=== PATIENT | female | born 1950 | race Caucasian/White ===

== ENCOUNTER 2024-11-16 15:46 | Inpatient (IN) ==
[2024-11-16] MEDS: MoRPHine SULFATE 4 MG/ML 1 ML CARP\\VIAL IV PRN ×2 (16:10→19:01)
--- NOTE | 2024-11-16 16:17 | Emergency Department Note ---
Impression & Plan Acute pain of right hip, Fall, Subcapital fracture of right hip ED Provider Note ED Provider Note NAME: ZACHARY GUTIERREZ AGE:74 SEX: Female : 1950 ARRIVES VIA: EMS INFORMANT: Patient ED PROVIDER(s): Maeve Simon DO CHIEF COMPLAINT: Fall, right hip pain HPI: This is a 74-year-old female who presents via EMS after an accidental slip and fall on ice today onto the right hip. Patient states she was unable to get back up due to pain at the right hip. She denies head injury or loss of consciousness. She denies any use of antiplatelet or anticoagulation medication. She denies any other concern for injury. She denies any paresthesias. She denies headache, dizziness, nausea or vomiting, chest pain, shortness of breath, abdominal pain, neck or back pain. PAST MEDICAL HISTORY:See Below PAST SURGICAL HISTORY:See Below FAMILY HISTORY:See Below SOCIAL HISTORY:See Below HOME MEDICATIONS:See Below ALLERGIES:See Below VITALS:See Below PHYSICAL EXAMINATION: GENERAL: alert, uncomfortable appearing, well nourished, no distress, non-toxic EYE EXAM: normal conjunctiva, PERRL and EOM's grossly intact OROPHARYNX: no exudate, no erythema, lips, buccal mucosa, and tongue normal and mucous membranes are moist NECK: supple, no nuchal rigidity, no adenopathy, non-tender LUNGS: Clear to auscultation. Normal chest wall mechanics, no w/r/r HEART: no murmurs, S1 normal and S2 normal ABDOMEN: abdomen soft, non-tender, normo-active bowel sounds, no masses, no rebound or guarding. BACK: Back is symmetrical on inspection and there is no deformity, no midline tenderness, no CVA tenderness. SKIN: no rashes, petechiae, orbruising UPPER EXTREMITIES: upper extremities are grossly normal. FROM, nml pulses b/l. LOWER EXTREMITIES: No pitting edema. FROM left lower extremity, nml pulses b/l. Pain with palpation of the right lateral hip, decreased range of motion at the right hip secondary to pain. No obvious joint effusion. No other evidence of trauma distal to the right lower extremity. Sensation intact bilaterally. NEURO EXAM: Normal sensorium, cranial nerves II-XII grossly intact, normal speech, no facial droop,nogross weakness of arms, no gross weakness of legs. Gross sensation intact. No ataxia. Vital Signs: reviewed and remarkable Differential Diagnosis: Fracture, subluxation, dislocation, contusion, ligamentous injury, neurovascular, compartment syndrome, rhabdomyolysis, as well as other pathologies. MEDICAL DECISION MAKING: This is a 74-year-old female who presents emergency department due to concern for slip and fall on ice with accompanying right hip pain. Labs drawn and sent, IV established, EKG and x-rays performed at bedside interpreted by me and patient monitored on telemetry. Patient given IV morphine here for pain with some improvement. Patient's labs are reassuring. Patient with subcapital hip fracture noted on x-ray. She was neurovascularly intact. Case discussed with orthopedics and with hospitalist team for additional evaluation and management. Patient and family updated on results at bedside and need for further management. Patient remained hemodynamically stable throughout. At this time I have a low suspicion for additional occult traumatic injury. Patient had no other concerns or complaints and no evolving symptoms while present the emergency department. Consultation(s): 1647: Discussed with Dr. Keenan via [facility] text. 1703: Discussed with Dr. Stoner, [facility] hospitalist team, for additional evaluation and management. ER Treatment Provided: See below Diagnostics Interpreted By Me: -ECG: Normal sinus at 87 with first-degree AV block, normal axis, normal intervals, no acute ST/T wave changes -Cardiac Monitoring: An order was placed for continuous cardiac monitoring. The monitor shows a rate of 98 with normal sinus rhythm. -Laboratory studies: As stated above and show below. 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 Beliefs That Will Affect Care: None Current Living Situation: Alone Feels Safe at Home: Yes Safety Concerns: Feels Safe At This Time Assistive Devices: None Allergies Allergies Allergy/AdvReac Type Severity Reaction Status Date / Time No Known Allergies Allergy Unverified 11/16/24 17:44 Home Meds Home Medications Medication Instructions Recorded Confirmed aspirin 81 mg tablet 81 mg PO DAILY 11/16/24 11/16/24 Results & Data (ED) Vital Signs Vital Signs - 24 hr 11/16/24 15:45 11/16/24 15:55 11/16/24 16:00 Temperature 36.8 C 36.8 C Temperature Source Oral Pulse Rate 102 H 101 H Pulse Rate [Apical] 86 Pulse Rhythm Regular Pulse Rhythm [Apical] Pulse Strength Normal Pulse Strength [Apical] Respiratory Rate 20 20 20 Respiratory Effort / Characteristics Non-Labored Spontaneous Non-Labored Spontaneous Respiratory Depth Normal Normal Respiratory Pattern Regular Regular Blood Pressure 172/98 H 172/101 H Blood Pressure [Left Arm] Blood Pressure Mean 124 Blood Pressure Mean [Left Arm] Blood Pressure Position [Left Arm] Pulse Oximetry 100 100 100 Oxygen Delivery Method Room Air Room Air Room Air Oxygen Flow Rate 0 Sepsis Recent Fever Within 48 Hours No Sepsis New/Unexplained Change in Mental Status N/A Sepsis Action Taken by Nursing No Action Required 11/16/24 16:18 11/16/24 16:42 11/16/24 16:49 Temperature Temperature Source Pulse Rate 88 Pulse Rate [Apical] 82 83 Pulse Rhythm Pulse Rhythm [Apical] Regular Regular Pulse Strength Pulse Strength [Apical] Normal Normal Respiratory Rate 21 Respiratory Effort / Characteristics Non-Labored Spontaneous Respiratory Depth Normal Respiratory Pattern Regular Blood Pressure Blood Pressure [Left Arm] 182/101 H Blood Pressure Mean Blood Pressure Mean [Left Arm] 128 Blood Pressure Position [Left Arm] Sitting Pulse Oximetry 100 Oxygen Delivery Method Room Air Oxygen Flow Rate Sepsis Recent Fever Within 48 Hours Sepsis New/Unexplained Change in Mental Status Sepsis Action Taken by Nursing 11/16/24 16:50 Temperature Temperature Source Pulse Rate Pulse Rate [Apical] Pulse Rhythm Pulse Rhythm [Apical] Pulse Strength Pulse Strength [Apical] Respiratory Rate Respiratory Effort / Characteristics Respiratory Depth Respiratory Pattern Blood Pressure Blood Pressure [Left Arm] Blood Pressure Mean Blood Pressure Mean [Left Arm] Blood Pressure Position [Left Arm] Pulse Oximetry 98 Oxygen Delivery Method Room Air Oxygen Flow Rate Sepsis Recent Fever Within 48 Hours Sepsis New/Unexplained Change in Mental Status Sepsis Action Taken by Nursing Laboratory Data 11/17/24 07:43 11/17/24 07:43 Lab Results 11/16/24 11/16/24 Range/Units 16:02 16:13 WBC 8.05 (4.8-10.8) K/ul RBC 5.11 (4.20-5.40) M/uL Hgb 14.9 (12.0-16.0) g/dl Hct 43.9 (37.0-47.0) % MCV 85.9 (80.0-100.0) fL MCH 29.2 (25.0-34.0) pg MCHC 33.9 (32.0-36.0) g/dL RDW Std Deviation 39.5 (36.4-46.3) fL RDW Coeff of Billie 12.6 (11.5-14.5) % Plt Count 189 (130-400) K/uL MPV 11.8 (9.4-12.4) fL Immature Gran % (Auto) 0.5 % Neut % (Auto) 69.9 % Lymph % (Auto) 22.7 % [place] % (Auto) 5.1 % Eos % (Auto) 0.9 % Baso % (Auto) 0.9 % Neut # (Auto) 5.63 (1.40-6.50) K/uL Lymph # (Auto) 1.83 (1.20-3.40) K/uL [place] # (Auto) 0.41 (0.11-0.59) K/uL Eos # (Auto) 0.07 (0.00-0.50) K/uL Baso # (Auto) 0.07 (0.00-0.20) K/uL Immature Gran # (Auto) 0.04 (0.01-0.20) K/uL PT Cancelled INR Cancelled APTT Cancelled PTT Ratio Cancelled Sodium 139 (136-145) mmol/L Potassium 3.8 (3.5-5.1) mmol/L Chloride 108 H (98-107) mmol/L Carbon Dioxide 20 L (21-32) mmol/L Anion Gap 11 (3-11) BUN 22 (6-23) mg/dl Creatinine 0.84 (0.6-1.2) mg/dl Est Cr Clr Drug Dosing 59.9 ml/min eGFR 71.97 BUN/Creatinine Ratio 26.2 H (10-20) Glucose 120 H (70-99(Fasting)) mg/dl Calcium 9.4 (8.6-10.3) mg/dl Total Bilirubin 0.5 (0.2-1.0) mg/dl AST 18 (13-39) U/L ALT 14 (7-52) U/L Alkaline Phosphatase 81 (34-104) U/L Total Protein 7.6 (6.0-8.3) gm/dl Albumin 4.6 (3.4-5.0) gm/dl Globulin 3.0 (2.5-4.0) gm/dl Albumin/Globulin Ratio 1.5 (0.9-2) Blood Type A Positive Antibody Screen NEGATIVE Administered Medications Aspirin (Aspirin 81 Mg Ectab) 81 mg PO BID KEI Stop: 12/17/24 20:59 Last Admin: 11/17/24 19:50 Dose: Not Given Documented By: K[facility] Hydralazine HCl (Hydralazine Hcl 20 Mg/Ml Vial) 10 mg IV Q6H PRN PRN Reason: Hypertension SBP>180orDBP>100 Stop: 12/16/24 18:35 Last Admin: 11/16/24 20:18 Dose: 10 mg Documented By: [facility] Cefazolin Sodium (Ancef 2000mg) 2,000 mg in 15 mls @ 3.75 mls/min IV PREOP KEI; Protocol Stop: 11/18/24 05:59 Last Admin: 11/17/24 13:03 Dose: 3.75 mls/min Documented By: [id number] Tranexamic Acid (Tranexamic Acid / 0.7% Nacl) 1,000 mg in 100 mls @ 7.87 mls/hr IV .[id number] ONE Stop: 11/18/24 01:52 Last Admin: 11/17/24 17:31 Dose: Not Given Documented By: [facility] Cefazolin Sodium (Ancef 1000mg) 1,000 mg in 7.5 mls @ 2.5 mls/min IV Q8H KEI; Protocol Stop: 11/18/24 05:02 Last Admin: 11/17/24 19:48 Dose: 2.5 mls/min Documented By: KMG Morphine Sulfate (Morphine Sulfate 4 Mg/Ml 1 Ml Carp\Vial) 3 mg IV Q4H PRN PRN Reason: Mod to Sev Pain (4-10) & Pre PT Stop: 11/30/24 18:35 Last Admin: 11/17/24 00:49 Dose: 3 mg Documented By: Admin: 11/16/24 19:01 Dose: 3 mg Documented By: BONITA Oxycodone/Acetaminophen (Oxycodone/Acetaminophen 5mg/325mg Tab) 1 tab PO Q4H PRN PRN Reason: Mild-Mod Pain (Scale 1-6) Stop: 11/30/24 18:35 Last Admin: 11/16/24 20:51 Dose: 1 tab Documented By: SARA Quetiapine Fumarate (Quetiapine Fumarate 25 Mg Tablet) 25 mg PO ONCE PRN PRN Reason: Agitation Stop: 12/17/24 18:47 Last Admin: 11/17/24 19:48 Dose: 25 mg Documented By: CLAUDIA Discontinued Medications Aspirin (Aspirin 81 Mg Ectab) 81 mg PO DAILY [facility] Stop: 12/17/24 08:59 Last Admin: 11/17/24 07:54 Dose: 81 mg Documented By: JABIER Lactated Ringer's (Lr) 1,000 mls @ 50 mls/hr IV .Q20H ONE Stop: 11/17/24 14:35 Last Infusion: 11/17/24 15:51 Dose: Infused Documented By: Admin: 11/16/24 18:50 Dose: 50 mls/hr Documented By: BONITA Tranexamic Acid 790 mg/ Sodium (Chloride) 57.9 mls @ 231.6 mls/hr IV PREOP ONE Stop: 11/17/24 12:58 Last Admin: 11/17/24 15:52 Dose: Not Given Documented By: JABIER Tranexamic Acid (Tranexamic Acid / 0.7% Nacl) 1,000 mg in 100 mls @ 600 mls/hr IV ONE ONE Stop: 11/17/24 13:06 Last Admin: 11/17/24 15:52 Dose: Not Given Documented By: JABIER Ropivacaine 246 mg/ Ketorolac Tromethamine 30 mg/Epinephrine HCl 0.5 mg/ Sodium Chloride 100.7 mls @ 0 mls/hr INFIL TODAY@0600 [facility]; Protocol Stop: 11/17/24 06:01 Last Admin: 11/17/24 14:21 Dose: 999 mls/hr Documented By: ROLANDO Tranexamic Acid (Tranexamic Acid / 0.7% Nacl) 1,000 mg in 100 mls @ 600 mls/hr IV PREOP ONE Stop: 11/17/24 13:19 Last Infusion: 11/17/24 15:51 Dose: Infused Documented By: Admin: 11/17/24 14:20 Dose: 600 mls/hr Documented By: [id number] Morphine Sulfate (Morphine Sulfate 4 Mg/Ml 1 Ml Carp\Vial) 4 mg IV Q1H PRN PRN Reason: Severe Pain (Rating 7,8,9,10) Stop: 11/30/24 15:53 Last Admin: 11/16/24 17:50 Dose: 4 mg Documented By: Admin: 11/16/24 16:10 Dose: 4 mg Documented By: KELLEY Tranexamic Acid (Tranexamic Acid / 0.7% Nacl 1000mg/100ml Bag) Confirm Administered Dose 2,000 mg IV .STK-MED ONE Stop: 11/17/24 12:59 Last Admin: 11/17/24 17:31 Dose: Not Given Documented By: [facility] Discharge Plan Visit Data Chief Complaint: Trauma Stated Complaint: TRAUMA ALERT, FALL, HIP FRACTURE ED Provider: Maeve Simon Discharge Problem: Acute pain of right hip, Fall, Subcapital fracture of right hip Patient Disposition: Admitted As Inpatient Discharge Instructions Interventions: ED Discharge Assessment Last Done: 11/16/24 18:12
[2024-11-16 16:29] LABS: Basophils # (auto) 0.07 K/uL (0.00-0.20); Basophils % (auto) 0.9 %; Eosinophils # (auto) 0.07 K/uL (0.00-0.50); Eosinophils % (auto) 0.9 %; Hematocrit (blood only) 43.9 % (37.0-47.0); Hemoglobin 14.9 g/dl (12.0-16.0); Immature Granulocytes # (auto) 0.04 K/uL (0.01-0.20); Immature Granulocytes % (auto) 0.5 %; Lymphocytes # (auto) 1.83 K/uL (1.20-3.40); Lymphocytes % (auto) 22.7 %; Mean Corpuscular Hemoglobin 29.2 pg (25.0-34.0); Mean Corpuscular Hgb Conc 33.9 g/dL (32.0-36.0); Mean Corpuscular Volume 85.9 fL (80.0-100.0); Mean Platelet Volume 11.8 fL (9.4-12.4); Monocytes # (auto) 0.41 K/uL (0.11-0.59); Monocytes % (auto) 5.1 %; Neutrophils # (auto) 5.63 K/uL (1.40-6.50); Neutrophils % (auto) 69.9 %; Platelet Count 189 K/uL (130-400); RDW Coefficient of Variation 12.6 % (11.5-14.5); RDW Standard Deviation 39.5 fL (36.4-46.3); Red Blood Count 5.11 M/uL (4.20-5.40); White Blood Count 8.05 K/ul (4.8-10.8)
[2024-11-16 16:32] LABS: Albumin Globulin Ratio 1.5 (0.9-2); Albumin Level 4.6 gm/dl (3.4-5.0); BUN Creatinine Ratio 26.2 (10-20); Bilirubin,Total 0.5 mg/dl (0.2-1.0); Calcium 9.4 mg/dl (8.6-10.3); Creatinine Clr Calc Pharmacy 59.9 ml/min; Potassium 3.8 mmol/L (3.5-5.1); Total Protein 7.6 gm/dl (6.0-8.3)
--- NOTE | 2024-11-16 17:27 | XRay Report ---
EXAM: XR hip RT min 2V CLINICAL HISTORY: Trauma TECHNIQUE: An X-ray image of the right hip joint was obtained in anteroposterior (AP) projection. COMPARISON: No prior studies are available for comparison. FINDINGS: Displaced sucapital fracture neck of the femur. Hip Joints: Hip joints are normal with preserved joint spaces. No evidence of hip dislocation, subluxation, or significant degenerative changes. No osteophytes, joint space narrowing, or sclerosis were noted. Acetabular structures appear normal and intact. No signs of acetabular fracture or dysplasia. Sacroiliac joints appear normal and unremarkable. No evidence of sacroiliitis or significant degenerative changes. Symphysis Pubis: The symphysis pubis is normal and intact. No evidence of separation or widening. Soft Tissues: Calcified density in the pelvis, may represent degenerated fibroid. Additional Findings: No other significant abnormalities were noted. IMPRESSION: Displaced sucapital fracture neck of the femur. DISCLAIMER:A subtle bone abnormality or fracture may not be readily apparent on x-rays, thus clinical correlation and further imaging including follow up CT, MRI, or follow up X-rays are advised as needed. Electronically signed by Addi Prakash 11-16-2024 5:27 PM
--- NOTE | 2024-11-16 17:37 | XRay Report ---
EXAM: XR chest 1V portable CLINICAL HISTORY: trauma TECHNIQUE: X-ray images of the chest were obtained in AP projections. COMPARISON: No prior studies available for comparison. FINDINGS: Pulmonary Parenchyma: Diffuse reticular thickening suggestive of COPD changes. No evidence of pleural effusion or pleural thickening. Heart and Mediastinum: Heart size and shape are normal. No mediastinal widening or masses. No hilar or mediastinal lymphadenopathy. Bony Thorax: Bilateral shoulder joints degenerative changes. Soft Tissues: Soft tissues overlying the chest wall are unremarkable. Cardiac monitoring electrodes. IMPRESSION: Diffuse reticular thickening suggestive of COPD changes. No acute cardiopulmonary disease process noted. Electronically signed by Addi Prakash 11-16-2024 5:37 PM
--- NOTE | 2024-11-16 17:48 | History & Physical Report ---
Date of Service November 16, 2024 Assessment & Plan (1) Fall: (2) Acute pain of right hip: (3) Closed right hip fracture: Plan Right hip fracture Secondary to mechanical fall --Hip X ray:Displaced sucapital fracture neck of the femur. Admit in Med/Tele Pain control, IV fluids Orthopedics consulted NPO after midnight bowel regimen to prevent constipation PT/OT when appropriate Monitor for for post op anemia Check vitamin D levels Hypertensive urgency Likely situational secondary to pain H/O hypertension currently not on medications Hydralazine as needed for now Monitor blood pressure closely H/O CVA with chronic facial droop Continue aspirin 81 mg daily Check lipid panel, A1c DVT Px: SCDs for now Code Status Full Code History of Present Illness Chief Complaint: Right Hip Pain Primary Care Provider: NO PCP Patient is a 74-year-old female with history of stroke, chronic facial droop, Alanis's palsy, hypertension and no other significant past medical history presents with history of fall. patient went to a grocery store today and while in the parking lot patient accidentally slipped and fell on right side. Patient complains of significant right hip pain, nonradiating 10/10 intensity, denies any numbness or tingling since the fall. She was not able to ambulate. Denies any head trauma, loss of consciousness, dizziness. Patient denies any use of blood thinners but admits to take aspirin 81 mg daily for CVA. She denies pain at any other site other than the right hip. Denies any history of chest pain, dyspnea, palpitations, pedal edema, cough, fever, chills, headache, change in vision, nausea, vomiting, abdominal pain, diarrhea, dysuria, recent change in medications. Allergies Allergy/AdvReac Type Severity Reaction Status Date / Time No Known Allergies Allergy Unverified 11/16/24 17:44 Home Medications Medication Instructions Recorded Confirmed Type aspirin 81 mg tablet 81 mg PO DAILY 11/16/24 11/16/24 History Past Med/Surg History Problem List (Updated 11/16/24 @ 19:13 by Ernie Stoner MD) Closed right hip fracture Fall (Acute) Acute pain of right hip (Acute) Family History Father Heart disease Social History Smoking Status: Never smoker Hx Alcohol Use: No Hx Substance Use: No Preferred Language: [place] Behavioral Specialist Required: No Beliefs That Will Affect Care: None Current Living Situation: Alone Feels Safe at Home: Yes Safety Concerns: Feels Safe At This Time Review of Systems Review of Systems: All systems reviewed & are unremarkable except as noted in Subjective Physical Exam Physical Exam: Physical Exam: Vitals signs as noted above General Appearance:Moderately built and nourished, no apparent distress Head: normocephalic, Atraumatic Eyes: normal inspection, EOMI Neck: supple, Trachea midline Respiratory/Chest: Normal breath sounds, CTA, No accessory muscle use Cardiovascular: S1, S2, No murmur Abdomen/GI:Soft, Non tender, Bowel sounds present Extremities/Musculoskeletal:normal inspection, no edema, Right lower extremity shortened, externally rotated Neurologic/Psych:AAOX3, grossly no focal neurological deficits,+ chronic facial droop Skin: normal color, warm Results & Data Results & Data Vital Signs (Past 12 Hours) Vital Signs Temp Pulse Pulse Resp BP BP Pulse Ox 11/16/24 17:01 85 17 193/106 H 97 11/16/24 16:50 98 11/16/24 16:49 83 11/16/24 16:42 82 21 182/101 H 100 11/16/24 16:18 88 11/16/24 16:00 86 20 100 11/16/24 15:55 36.8 C 101 H 20 172/101 H 100 11/16/24 15:45 36.8 C 102 H 20 172/98 H 100 O2 Del Method O2 Flow Rate 11/16/24 17:01 Room Air 11/16/24 16:50 Room Air 11/16/24 16:49 11/16/24 16:42 Room Air 11/16/24 16:18 11/16/24 16:00 Room Air 11/16/24 15:55 Room Air 11/16/24 15:45 Room Air 0 Laboratory Results Short CBC 11/16/24 Range/Units 16:13 WBC 8.05 (4.8-10.8) K/ul Hgb 14.9 (12.0-16.0) g/dl Hct 43.9 (37.0-47.0) % Plt Count 189 (130-400) K/uL BMP 11/16/24 16:02 Sodium 139 Potassium 3.8 Chloride 108 H Carbon Dioxide 20 L BUN 22 Creatinine 0.84 Glucose 120 H Calcium 9.4 Liver Function 11/16/24 Range/Units 16:02 Total Bilirubin 0.5 (0.2-1.0) mg/dl AST 18 (13-39) U/L ALT 14 (7-52) U/L Alkaline Phosphatase 81 (34-104) U/L Albumin 4.6 (3.4-5.0) gm/dl Urine 11/16/24 Range/Units 18:06 Urine Color Yellow Urine Appearance Clear (Clear) Urine pH 6.0 (4.5-7.5) Ur Specific [place] 1.021 (1.000-1.030) Urine Protein Negative (Negative) Urine Glucose (UA) Negative (Negative) Diagnostic Findings --CXR:Diffuse reticular thickening suggestive of COPD changes. No acute cardiopulmonary disease process noted. --Right Hip X ray:Displaced sucapital fracture neck of the femur. ECG Additional Comments: --EKG: Sinus rhythm with first-degree AV block. QTc 454 Code Status & VTE Plan VTE Prophylaxis Plan VTE Prophylaxis will be ordered: Yes
[2024-11-16 18:19] LABS: Appearance Urine Clear (Clear); Bacteria Urine Automated None Seen (None Seen); Bilirubin Urine Negative (Negative); Blood Urine 1+ (Negative); Cast Urine Automated 0-2 /lpf (0-2); Color Urine Yellow; Epithelial Cell Urine Auto 0-2 /hpf (0-2); Glucose Urine UA Negative (Negative); Ketones Urine 2+ (Negative); Leukocyte Esterase Urine Negative (Negative); Nitrite Urine Negative (Negative); Protein Urine Negative (Negative); Specific Gravity Urine 1.021 (1.000-1.030); Urobilinogen Urine Negative (Negative); WBC Urine Automated 0-5 /hpf (0-5)
[2024-11-16] MEDS ORDERED: NALOXONE HCL 0.4 MG/1 ML VIAL/CARP IV PRN (18:36)
[2024-11-16] MEDS ORDERED: DOCUSATE SODIUM/SENNA 50/8.6MG TAB PO PRN (18:36)
[2024-11-16] MEDS ORDERED: MAGNESIUM HYDROXIDE SUSP 30 ML UDC PO PRN (18:36)
[2024-11-16] MEDS ORDERED: bisacodyL 10 MG SUPP PR PRN (18:36)
[2024-11-16] MEDS ORDERED: ONDANSETRON INJ 2 MG/ML 2 ML VIAL IV PRN (18:36)
[2024-11-16] MEDS ORDERED: POLYETHYLENE (MIRALAX) 17 GM PACK PO PRN (18:36)
[2024-11-16 18:50] LABS: Partial Thromboplastin Ratio 0.9; Partial Thromboplastin Time 24 Seconds (21-31)
[2024-11-16] MEDS: LACTATED RINGER'S 1,000 ML IV ONE (18:50)
--- NOTE | 2024-11-16 19:35 | Orthopedic Consultation ---
Date of Service November 16, 2024 Assessment & Plan (1) Closed right hip fracture: We discussed diagnosis and treatment options at bedside. I recommended a cemented right hip hemiarthroplasty. She understands the risk, benefits, and alternatives to procedures like to proceed. Questions were answered at bedside. Time was spent scribing the procedure and postop expectations. She will be n.p.o. past midnight tonight. We plan to fix the fracture tomorrow afternoon. History of Present Illness Reason for Consultation: Displaced right femoral neck fracture. Requesting Physician: . Attending Physician: Ernie Stoner MD Denise is a pleasant 74-year-old female who is a community ambulator without as sistance. She lives in a house by herself and has family nearby. She slipped on the ice today and fell directly onto her right hip. She came to the emergency room where x-rays demonstrated a displaced right femoral neck fracture. She was admitted to the medical service. Orthopedics was consulted to evaluate and treat.. 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 Physical Exam On physical exam of the right hip, the leg is shortened and externally rotated. She has active motion of her toes. There are no abrasions, lesions, or lacerations of her skin.. Constitutional WD/WN, vitals as above Eyes PERRL, conjunctivae normal, anicteric sclerae ENMT external ear and nose normal, oropharynx normal Neck trachea midline, no thyromegaly Respiratory normal respiratory effort Cardiovascular RRR, no murmur, no edema Gastrointestinal (Abdomen) normal bowel sounds, soft, nontender, no hepatosplenomegaly Psychiatric A+Ox3, euthymic affect Results & Data Results & Data Laboratory Results . Diagnostic Findings X-rays of the right hip do show a displaced right femoral neck fracture.. PG Care Time/CCT Total # of Minutes Spent Total Time Spent with Patient: Total time spent is greater than 50% in coordination of care (as documented) at patient's floor/unit and/or counseling patient: Coding Level of Care Code 26752 IN/OBS CONSULT LVL 4,60M (57 - DECISION FOR SURGERY) Diagnoses Closed right hip fracture S72.001A
[2024-11-16] MEDS: hydrALAZINE HCL 20 MG/ML VIAL IV PRN (20:18)
[2024-11-16] MEDS: oxyCODONE/ACETAMINOPHEN 5mg/325mg TAB PO PRN (20:51)
[2024-11-17] MEDS: ASPIRIN 81 MG ECTAB PO SCH ×2 (07:54→19:50)
[2024-11-17 08:22] LABS: Hematocrit (blood only) 36.2 % (37.0-47.0); Hemoglobin 12.2 g/dl (12.0-16.0); Mean Corpuscular Hemoglobin 28.8 pg (25.0-34.0); Mean Corpuscular Hgb Conc 33.7 g/dL (32.0-36.0); Mean Corpuscular Volume 85.6 fL (80.0-100.0); Mean Platelet Volume 11.5 fL (9.4-12.4); Platelet Count 153 K/uL (130-400); RDW Coefficient of Variation 13.1 % (11.5-14.5); RDW Standard Deviation 40.1 fL (36.4-46.3); Red Blood Count 4.23 M/uL (4.20-5.40); White Blood Count 10.66 K/ul (4.8-10.8)
[2024-11-17 08:45] LABS: BUN Creatinine Ratio 23.9 (10-20); Calcium 8.7 mg/dl (8.6-10.3); Chol HDL Ratio 3.5 (0-5); Creatinine Clr Calc Pharmacy 69.9 ml/min; Magnesium 2.2 mg/dl (1.7-2.4); Potassium 3.8 mmol/L (3.5-5.1)
[2024-11-17 09:18] LABS: Estimated Average Glucose 108 mg/dl; Hemoglobin A1C 5.4 % (4.5-5.6)
--- NOTE | 2024-11-17 09:34 | Hospitalist Progress Note ---
Date of Service November 17, 2024 Assessment & Plan (1) Fall: (2) Acute pain of right hip: (3) Closed right hip fracture: Plan 74-year-old female with history of stroke, chronic facial droop/ Alanis's palsy, hypertension who presented after a mechanical fall. Stated she slipped on ice Right hip fracture Hip X ray:Displaced fracture neck of the femur. Ortho eval noted Planned for OR today. Keep NPO for OR Continue IVF maintenance Pain control Will get PT/OT post op Vit D level is 42.5 Hypertensive urgency May be related to fracture/pain H/O hypertension currently not on medications Hydralazine as needed for now Monitor Optimize pain control H/O CVA with chronic facial droop Continue aspirin 81 mg daily Check lipid panel, A1c DVT Px: SCDs for now Code Status Full Code I spent a total of 50 minutes coordinating, documenting and providing care for this patient excluding time spent in performance of separately billed services Admission and Anticipated Discharge Date Admission Date: November 16, 2024 Subjective Patient seen and examined Reports some low back pain Reports right hip pain with movement Denied other complaints on ROS Physical Exam Constitutional: well nourished; + not well developed Eyes: PERRL, conjunctivae normal, anicteric sclerae ENMT: external ear and nose normal, oropharynx normal Respiratory: normal respiratory effort, lungs clear to auscultation Cardiovascular: Rate/Rhythm: regular rate and regular rhythm Gastrointestinal (Abdomen): normal bowel sounds, soft, nontender, no hepatosplenomegaly Musculoskeletal: Externally rotated and shortened RLE Neurologic: PERRL, EOMI. Left facial palsy(chronic per patient) Psychiatric: Alert and oriented to person and place only Results & Data Results & Data Vital Signs (Past 12 Hours) Vital Signs Temp Pulse Pulse Pulse Resp BP Pulse Ox 11/17/24 08:20 36.8 C 94 H 16 160/84 H 96 11/17/24 07:55 11/17/24 07:00 102 H 11/17/24 02:45 36.8 C 106 H 18 127/70 96 11/16/24 23:54 11/16/24 22:31 36.6 C 111 H 18 135/72 97 11/16/24 21:50 95 H O2 Del Method 11/17/24 08:20 Room Air 11/17/24 07:55 Room Air 11/17/24 07:00 11/17/24 02:45 Room Air 11/16/24 23:54 Room Air 11/16/24 22:31 Room Air 11/16/24 21:50 Laboratory Results Abnormal lab results 11/16/24 11/16/24 11/17/24 Range/Units 16:02 18:06 07:43 Hct 36.2 L (37.0-47.0) % Chloride 108 H (98-107) mmol/L Carbon Dioxide 20 L (21-32) mmol/L BUN/Creatinine Ratio 26.2 H 23.9 H (10-20) Glucose 120 H (70-99(Fasting)) mg/dl Urine Ketones 2+ H (Negative) Urine Blood 1+ H (Negative) Urine RBC (Auto) 11-20 H (0-2) /hpf
--- NOTE | 2024-11-17 11:52 | Orthopedic Progress Note ---
Date of Service November 17, 2024 Assessment & Plan (1) Closed right hip fracture: Assessment: Displaced femoral neck fracture of the right hip. Plan: Overall, she is doing quite well today with good pain control of the right hip. She is currently scheduled to proceed with operative fixation of the right hip with the use of a hemiarthroplasty later this afternoon with Dr. Keenan. She should remain n.p.o. until that time. She should remain in bed rest. Postsurgical expectations discussed today. Will continue to monitor postoperatively as well. Medical management per primary service. Will continue to follow. Subjective . Denise was seen this morning resting comfortably in no apparent distress. She is currently scheduled to undergo a right hip hemiarthroplasty later this evening with Dr. Keenan. She has no questions or concerns about the surgical intervention. She would like to still proceed with surgical intervention later this morning. She denies any other concerns today. Review of Systems All systems reviewed & are unremarkable except as noted in HPI & below. Physical Exam . On physical examination of the right hip, leg is shortened and externally rotated. She has active motion of her toes. There is no abrasion, lesion, or lacerations to her skin. Results & Data Results & Data Laboratory Results . Diagnostic Findings . PG Care Time/CCT Total # of Minutes Spent Total Time Spent with Patient: Total time spent is greater than 50% in coordination of care (as documented) at patient's floor/unit and/or counseling patient: Coding Level of Care Code 62630 SUB INP/OBS CARE 10/30MIN Diagnoses Closed right hip fracture S72.001A
--- NOTE | 2024-11-17 12:41 | Electrocardiogram Report ---
Test Reason : Blood Pressure : */* mmHG Vent. Rate : 87 BPM Atrial Rate : 87 BPM P-R Int : 222 ms QRS Dur : 94 ms QT Int : 378 ms P-R-T Axes : 61 48 47 degrees QTcB Int : 454 ms Sinus rhythm with 1st degree A-V block Otherwise normal ECG No previous ECGs available Confirmed by Xavier Triana ([id number]) on 11/17/2024 12:40:25 PM Referred By: REFERRED SELF Confirmed By: Xavier Triana
--- NOTE | 2024-11-17 12:46 | History & Physical Bridge Note ---
Date of Service November 17, 2024 History & Physical Bridge Note I have examined the patient, reviewed the History & Physical and in the interval since the performance of the History & Physical I have noted the following changes of clinical significance: no changes noted
[2024-11-17] MEDS ORDERED: MIDAZOLAM HCL 1 MG/ML 2ML VIAL ONE (12:49)
[2024-11-17] MEDS ORDERED: fentaNYL citrate PF 100 MCG/2 ML VIAL ONE (12:50)
[2024-11-17] MEDS ORDERED: PROPOFOL IV EMULSION 10 MG/ML 20 ML VIAL IV ONE (12:51)
[2024-11-17] MEDS ORDERED: LIDOCAINE 2% 2 ML VIAL/AMP(20MG/ML) INFIL ONE (12:51)
[2024-11-17] MEDS ORDERED: ROCURONIUM BROMIDE 10 MG/ML 5 ML VIAL IV ONE (12:51)
--- NOTE | 2024-11-17 12:51 | Anesthesiology Consultation ---
Date of Service November 17, 2024 Assessment & Plan (1) Encounter for pre-operative examination: Chart Review Chart Review: Acceptable Risk for Surgery and Patient NOT seen in Pre Admission Testing Consults Requested none History Surgery Operation Date: 11/17/24 08:20 Proposed Procedures p Right Cemented Hemiarthroplasty - Mikel Keenan, Height/Weight Height: 5 ft 5 in Weight: 78.7 kg Allergies Allergy/AdvReac Type Severity Reaction Status Date / Time No Known Allergies Allergy Unverified 11/16/24 17:44 Medications Home Medications Medication Instructions Recorded Confirmed Last Taken aspirin 81 mg tablet 81 mg PO DAILY 11/16/24 11/16/24 Unknown Active Medications Generic Name Dose Route Start Last Admin Trade Name Freq PRN Reason Stop Dose Admin Aspirin 81 mg 11/17/24 09:00 11/17/24 07:54 Aspirin 81 Mg Ectab PO 12/17/24 08:59 81 mg DAILY KEI Administration Hydralazine HCl 10 mg 11/16/24 18:36 11/16/24 20:18 Hydralazine Hcl 20 Mg/Ml Vial IV 12/16/24 18:35 10 mg Q6H PRN Administration Hypertension SBP>180orDBP>100 Lactated Ringer's 1,000 mls @ 50 mls/hr 11/16/24 18:36 11/16/24 18:50 Lr IV 11/17/24 14:35 50 mls/hr .Q20H ONE Administration Morphine Sulfate 3 mg 11/16/24 18:36 11/17/24 00:49 Morphine Sulfate 4 Mg/Ml 1 Ml Carp\Vial IV 11/30/24 18:35 3 mg Q4H PRN Administration Mod to Sev Pain (4-10) & Pre PT Oxycodone/Acetaminophen 1 tab 11/16/24 18:36 11/16/24 20:51 Oxycodone/Acetaminophen 5mg/325mg Tab PO 11/30/24 18:35 1 tab Q4H PRN Administration Mild-Mod Pain (Scale 1-6) NPO Date Last Intake of Fluids: 11/17/24 Time Last Intake of Fluids: 08:00 Last Intake of Fluids Comment: sip of water 0800 w/med Date Last Intake of Solids: 11/16/24 Time Last Intake of Solids: 08:00 Past Family History Family History Father Heart disease Social History Smoking Status: Never smoker Hx Alcohol Use: No Hx Substance Use: No Physical Exam Vital Signs Last Vital Signs Temp 99.1 F 11/17/24 12:35 Pulse 96 H 11/17/24 12:35 Resp 18 11/17/24 12:35 BP 156/87 H 11/17/24 12:35 Pulse Ox 98 11/17/24 12:35 O2 Del Method Room Air 11/17/24 12:35 O2 Flow Rate 0 11/16/24 15:45 Testing Laboratory Results 11/17/24 07:43 11/17/24 07:43 PT 11.0 Seconds (9.0-12.0) 11/16/24 18:08 INR 1.0 (0.9-1.1) 11/16/24 18:08 APTT 24 Seconds (21-31) 11/16/24 18:08 Hemoglobin A1c 5.4 % (4.5-5.6) 11/17/24 07:43 Urine Color Yellow 11/16/24 18:06 Urine Appearance Clear (Clear) 11/16/24 18:06 Urine pH 6.0 (4.5-7.5) 11/16/24 18:06 Ur Specific [place] 1.021 (1.000-1.030) 11/16/24 18:06 Urine Protein Negative (Negative) 11/16/24 18:06 Urine Glucose (UA) Negative (Negative) 11/16/24 18:06 Urine Ketones 2+ (Negative) H 11/16/24 18:06 Urine Nitrite Negative (Negative) 11/16/24 18:06 Ur Leukocyte Esterase Negative (Negative) 11/16/24 18:06 Urine WBC (Auto) 0-5 /hpf (0-5) 11/16/24 18:06 Urine RBC (Auto) 11-20 /hpf (0-2) H 11/16/24 18:06 U Hyaline Cast (Auto) 0-2 /lpf (0-2) 11/16/24 18:06 U Epithel Cells (Auto) 0-2 /hpf (0-2) 11/16/24 18:06 Urine Bacteria (Auto) None Seen (None Seen) 11/16/24 18:06 Blood Type A Positive 02/11/25 16:02 Antibody Screen NEGATIVE 11/16/24 16:02 Electrocardiogram Date: 11/16/24 Findings: + NSR @ 1st degree
[2024-11-17] MEDS ORDERED: ATROPINE SULFATE 0.1 MG/ML 10ML SYR IV PRN (12:53)
[2024-11-17] MEDS ORDERED: ePHEDrine sulfate 50 MG/ML AMP IV PRN (12:53)
[2024-11-17] MEDS ORDERED: fentaNYL citrate PF 100 MCG/2 ML VIAL IV PRN (12:53)
[2024-11-17] MEDS ORDERED: ONDANSETRON INJ 2 MG/ML 2 ML VIAL IV PRN (12:53)
[2024-11-17] MEDS ORDERED: ONDANSETRON INJ 2 MG/ML 2 ML VIAL ONE (12:54)
[2024-11-17] MEDS ORDERED: DEXAMETHASONE SOD INJ 4 MG/ML VIAL ONE (12:54)
[2024-11-17] MEDS: ceFAZolin 2000MG 2,000 MG/15 ML SYR IV SCH (13:03)
[2024-11-17] MEDS ORDERED: SUGAMMADEX SODIUM 200 MG/2 ML VIAL IV ONE (14:19)
[2024-11-17] MEDS: TRANEXAMIC ACID / 0.7% NACL 1,000 MG/100 ML BAG IV ONE ×3 (14:20→17:31)
[2024-11-17] MEDS: ROPIVACAINE 0.5% HCL/PF 246 MG, Ketorolac (*for OR use only*) 30 MG, EPINEPHrine 30MG/3... INFIL SCH (14:21)
--- NOTE | 2024-11-17 14:58 | Fluoroscopy Report ---
FL hip RT 1V CLINICAL HISTORY: RIGHT ANTERIOR AUGUSTINE COMPARISON STUDY: Right hip radiographs November 16, 2024. FLUOROSCOPY TIME: 8 seconds. Ka,r: 0.6420 mGy FLUOROSCOPIC IMAGES: 1 FINDINGS: Fluoroscopy was provided during anterior right hip arthroplasty. Alignment is anatomic. Semaj dware is intact. No fracture is identified by fluoroscopy. No unexpected radiopaque foreign bodies. IMPRESSION: Fluoroscopy provided during anterior right hip arthroplasty. ACT 112: Negative or not required by law. Electronically signed by: Cruz Bullock M.D. 11/17/2024 2:57 PM
--- NOTE | 2024-11-17 15:01 | Anesthesiology Progress Note ---
Date of Service November 17, 2024 Anesthesia Post Procedure Vital Signs Vital Signs: Temp Pulse Pulse Pulse Resp BP BP 11/17/24 14:50 36.3 C L 86 18 11/17/24 12:35 37.3 C 96 H 18 11/17/24 12:07 36.7 C 92 H 16 11/17/24 08:20 36.8 C 94 H 16 11/17/24 07:55 11/17/24 07:00 102 H 11/17/24 02:45 36.8 C 106 H 18 11/16/24 23:54 11/16/24 22:31 36.6 C 111 H 18 11/16/24 21:50 95 H 11/16/24 20:56 91 H 11/16/24 20:01 36.5 C 97 H 18 11/16/24 19:00 103 H 11/16/24 18:37 36.4 C L 98 H 22 186/62 H 11/16/24 18:36 36.2 C L 98 H 22 182/62 H 11/16/24 18:36 11/16/24 18:33 36.2 C L 96 H 22 191/81 H 11/16/24 18:12 96 H 19 11/16/24 18:00 100 H 22 145/99 H 11/16/24 17:01 85 17 193/106 H 11/16/24 16:50 11/16/24 16:49 83 11/16/24 16:42 82 21 182/101 H 11/16/24 16:18 88 11/16/24 16:00 86 20 11/16/24 15:55 36.8 C 101 H 20 172/101 H 11/16/24 15:45 36.8 C 102 H 20 172/98 H BP Pulse Ox Pulse Ox O2 Del Method O2 Del Method O2 Flow Rate 11/17/24 14:50 156/77 H 97 Oxymask 6 11/17/24 12:35 156/87 H 98 Room Air 11/17/24 12:07 160/80 H 95 Room Air 11/17/24 08:20 160/84 H 96 Room Air 11/17/24 07:55 Room Air 11/17/24 07:00 11/17/24 02:45 127/70 96 Room Air 11/16/24 23:54 Room Air 11/16/24 22:31 135/72 97 Room Air 11/16/24 21:50 11/16/24 20:56 138/67 11/16/24 20:01 204/76 H 97 Room Air 11/16/24 19:00 11/16/24 18:37 100 Room Air 11/16/24 18:36 99 Room Air 11/16/24 18:36 100 Room Air 11/16/24 18:33 100 Room Air 11/16/24 18:12 99 Room Air 11/16/24 18:00 98 Room Air 11/16/24 17:01 97 Room Air 11/16/24 16:50 98 Room Air 11/16/24 16:49 11/16/24 16:42 100 Room Air 11/16/24 16:18 11/16/24 16:00 100 Room Air 11/16/24 15:55 100 Room Air 11/16/24 15:45 100 Room Air 0 Pain Intensity Right Hip: Pain Intensity: 10 Back: Pain Intensity: 7 Transfer of Care Handoff Completed per policy Notes Mental Status: alert / awake / arousable Patient Amnestic to Procedure: Yes Nausea / Vomiting: adequately controlled Pain: adequately controlled Airway Patency, RR, SpO2: stable & adequate BP & HR: stable & adequate Hydration State: stable & adequate Anesthetic Complications: no major complications apparent
--- NOTE | 2024-11-17 15:17 | Operative Report ---
PG Post Operative Report Pre & Post Diagnosis Operation Date: 11/17/24 08:20 Pre-Op Diagnosis: Right hip fracture Post-Op Diagnosis: Right hip fracture I identified the patient and participated in the time-out.: Yes Procedure Operation Date: 11/17/24 08:20 Actual Procedures p Right Cemented Hemiarthroplasty(Right) - Mikel Keenan DO Surgeon Mikel Keenan DO Shirt Closer None Estimated Blood Loss 100 Findings Consistent with Post-Op Diagnosis Specimens Right femoral head Description of Procedure On November 17, 2024 Denise was brought down from the hospital room to the preoperative holding area. The operative extremity identified and signed. She is given a preoperative antibiotic. She is taken back to the operative room and put under general anesthesia. She was then transferred to the operating table. The right hip was then placed on a purist leg positioner. The right hip was then prepped and draped sterile fashion. A timeout was done. The patient and the operative extremity was properly identified. An anterior approach was used. Dissection was taken down through the fascia. The rectus was retracted anteriorly and the vastus was retracted laterally. The circumflex vessels were ligated. The capsule was exposed. The capsule was then incised and tagged for later repair. The fracture was then identified. The femoral neck was then resected with an oscillating saw and the femoral neck was removed. The femoral head was then removed. The acetabulum send exposed. I did not see any cartilage damage within the acetabulum. The femoral head measured to be a size 46. The proximal femur was then exposed. Sequential broaching up to a size 10 broach was done. A standard femoral neck was placed followed by a 46 mm bipolar head with a +3.5 mm neck. The hip was then reduced. Fluoroscopic images showed near anatomic alignment of the hip. The hip was then dislocated and trial components were then removed. The final size 9 Biomet echo stem was then cemented in place. Once cement had hardened a 46 mm bipolar head with a +3.5 neck was then impacted into place. The hip was then reduced. Final fluoroscopic images showed anatomic alignment of the implants. The hip was then irrigated. Hemostasis was obtained. The capsule was then closed with #1 Vicryl. The surrounding soft tissues were injected with 100 cc an orthopedic pain control cocktail. The fascia was then closed with PDS suture. Deep skin was closed with 2-0 Vicryl. Skin was closed with 3-0 Vicryl and jessica. A Silverlon dressing was placed. She she was then extubated and transferred to back to a hospital bed. She was taken to the postanesthesia care unit in stable condition. She tolerated the procedure well. I attest to the content of the Intraoperative Record and any orders documented therein. Any exceptions are noted below.
[2024-11-17] MEDS: TRANEXAMIC ACID IV ONE (15:52)
[2024-11-17] MEDS: SODIUM CHLORIDE 0.9% IV ONE (15:52)
[2024-11-17] MEDS: TRANEXAMIC ACID / 0.7% NACL 1000MG/100ML BAG IV ONE (17:31)
--- NOTE | 2024-11-17 17:48 | XRay Report ---
EXAM: Radiographs of the Right Hip 2 Views INDICATION: Postoperative replacement. TECHNIQUE: Front view pelvis and AP and frog leg lateral views of the right hip. COMPARISON: No relevant prior studies available. FINDINGS: Limitations: None. Bones/joints: Unipolar hip prosthesis well-seated and intact. No fracture or dislocation. Soft tissues: Expected soft tissue swelling and gas in the operative bed. IMPRESSION: Satisfactory appearance of right hip arthroplasty. ACT 112: Negative or not required by law. Electronically signed by Yanely Alfaro 11-17-2024 5:42 PM
[2024-11-17] MEDS: ceFAZolin 1000MG 1,000 MG/7.5 ML SYR IV SCH (19:48)
[2024-11-17] MEDS: QUEtiapine FUMARATE 25 MG TABLET PO PRN (19:48)
[2024-11-18 06:27] LABS: Basophils # (auto) 0.01 K/uL (0.00-0.20); Basophils % (auto) 0.1 %; Hematocrit (blood only) 38.7 % (37.0-47.0); Hemoglobin 12.8 g/dl (12.0-16.0); Immature Granulocytes # (auto) 0.07 K/uL (0.01-0.20); Immature Granulocytes % (auto) 0.5 %; Lymphocytes # (auto) 0.68 K/uL (1.20-3.40); Lymphocytes % (auto) 5.1 %; Mean Corpuscular Hemoglobin 28.6 pg (25.0-34.0); Mean Corpuscular Hgb Conc 33.1 g/dL (32.0-36.0); Mean Corpuscular Volume 86.6 fL (80.0-100.0); Mean Platelet Volume 11.3 fL (9.4-12.4); Monocytes # (auto) 1.13 K/uL (0.11-0.59); Monocytes % (auto) 8.5 %; Neutrophils # (auto) 11.41 K/uL (1.40-6.50); Neutrophils % (auto) 85.8 %; Platelet Count 130 K/uL (130-400); RDW Coefficient of Variation 12.9 % (11.5-14.5); RDW Standard Deviation 40.7 fL (36.4-46.3); Red Blood Count 4.47 M/uL (4.20-5.40)
[2024-11-18 06:43] LABS: Calcium 8.9 mg/dl (8.6-10.3); Creatinine Clr Calc Pharmacy 49.6 ml/min; Potassium 3.6 mmol/L (3.5-5.1)
--- NOTE | 2024-11-18 07:52 | Orthopedic Progress Note ---
Date of Service November 18, 2024 Assessment & Plan (1) Subcapital fracture of right hip: POD 1 from right anterior hemiarthroplasty for fracture, apparently increased agitation overnight jper staff PT/OT wbat dvt prophylaxis: teds, scd's, aspirin pain is well controlled d/c planning. Subjective .74 year old patient POD 1 from anterior right hemiarthroplasty with Dr. Keenan, done for a fracture. Apparently has been agitated overnight and restraints were ordered. She denies hip pain. Said her hip is fine today but wants out of the restraints on her wrists. Review of Systems All systems reviewed & are unremarkable except as noted in HPI & below. Physical Exam .alert, NAD, sitting in bed with soft restraints on her wrists Right leg: looks well aligned. Dressing clean, dry, intact. Able to move her foot appropriately. NVI Results & Data Results & Data Laboratory Results . Diagnostic Findings . PG Care Time/CCT Total # of Minutes Spent Total Time Spent with Patient: Total time spent is greater than 50% in coordination of care (as documented) at patient's floor/unit and/or counseling patient: Coding Level of Care Code 81153 Post Operative Follow-Up Diagnoses Subcapital fracture of right hip S72.011A
--- NOTE | 2024-11-18 10:39 | Hospitalist Progress Note ---
Date of Service November 18, 2024 Assessment & Plan (1) Fall: (2) Acute pain of right hip: (3) Closed right hip fracture: Plan 74-year-old female with history of stroke, chronic facial droop/ Alanis's palsy, hypertension who presented after a mechanical fall. Stated she slipped on ice Right hip fracture Hip X ray:Displaced fracture neck of the femur. Ortho eval noted S/p right hemiarthroplasty on 11/17/24 POD 1 Pain is well controlled Remove durbin PT/OT Vit D level is 42.5 ASA 81mg BID per ortho Hypertensive urgency H/O hypertension currently not on medications Start on amlodipine 5mg daily H/O CVA with chronic facial droop Continue aspirin 81 mg daily HbA1c 5.4 Discussed with daughter today. She reports patient has cognitive impairment that has been worsening in the past 6months Usually does not know date. However, more confused today Delirium in the setting of cognitive impairment Reorient as appropriate Will get CT head given recent fall as well to assess for any acute intracranial abnormalities Daughter reported she is not safe at home/lives alone and will like placement for her CM notified DVT Px: hep sq Code Status Full Code I spent a total of 55 minutes coordinating, documenting and providing care for this patient excluding time spent in performance of separately billed services Admission and Anticipated Discharge Date Admission Date: November 16, 2024 Subjective Patient seen and examined She is alert and oriented to person only, [place] Patient is confused and did not remember her surgery, thought she has been here for a week Denied any complaints Physical Exam Constitutional: well nourished; + not well developed Eyes: PERRL, conjunctivae normal, anicteric sclerae ENMT: external ear and nose normal, oropharynx normal Respiratory: normal respiratory effort, lungs clear to auscultation Cardiovascular: Rate/Rhythm: regular rate and regular rhythm Gastrointestinal (Abdomen): normal bowel sounds, soft, nontender, no hepatosplenomegaly Musculoskeletal: Clean dressing over right hip Neurologic: PERRL, EOMI, accommodation nl, no face palsy, no dysarthria Psychiatric: Alert and oriented to person only. Confused but cooperative with exam Results & Data Results & Data Vital Signs (Past 12 Hours) Vital Signs Temp Pulse Pulse Resp BP Pulse Ox O2 Del Method 11/18/24 07:40 Room Air 11/18/24 07:13 36.4 C L 96 H 18 175/83 H 94 Room Air 11/18/24 07:00 119 H 11/18/24 03:52 36.7 C 95 H 18 178/93 H 98 Room Air Laboratory Results Abnormal lab results 11/18/24 Range/Units 06:07 WBC 13.30 H (4.8-10.8) K/ul Neut # (Auto) 11.41 H (1.40-6.50) K/uL Lymph # (Auto) 0.68 L (1.20-3.40) K/uL [place] # (Auto) 1.13 H (0.11-0.59) K/uL Chloride 108 H (98-107) mmol/L Glucose 109 H (70-99(Fasting)) mg/dl
[2024-11-18] MEDS: amLODIPine BESYLATE 5 MG TAB PO SCH (12:25)
--- NOTE | 2024-11-18 12:56 | CT Scan Report ---
CT OF THE HEAD WITHOUT CONTRAST CLINICAL HISTORY: Recent fall. Confusion. R/o acute intracranial abn COMPARISON STUDY: No previous studies for comparison. CT DOSE: 547.75 mGy.cm TECHNIQUE: Helical axial images of the head were obtained without IV contrast. Automated exposure con trol was utilized for the study. A dose lowering technique was utilized adhering to the principles o f ALARA. FINDINGS: No acute intracranial hemorrhage, midline shift or mass effect is present. White matter hyp odensities favor small vessel disease. Small hypodensities within the left thalamus and left basal ga nglia favor old infarcts. The ventricular system is unremarkable. The basal cisterns are patent. No e xtra-axial collections are present. There are no findings to suggest acute dural sinus thrombosis or acute territorial infarct. No significant calvarial abnormalities are present. Visualized portions of the sinuses and mastoid air cells are clear. IMPRESSION: 1. No acute intracranial findings. 2. No calvarial fractures. 3. Small hypodensities within the left basal ganglia and left thalamus suggestive of old infarcts. ACT 112: Negative or not required by law. Electronically signed by: Cruz Bullock M.D. 11/18/2024 12:55 PM
[2024-11-18] MEDS: HEPARIN SOD 5,000 UNIT/0.5 ML VIAL SQ SCH (20:46)
[2024-11-19] MEDS: ACETAMINOPHEN 325 MG TAB PO PRN (05:57)
[2024-11-19 08:40] LABS: Hematocrit (blood only) 39.5 % (37.0-47.0); Hemoglobin 13.1 g/dl (12.0-16.0); Mean Corpuscular Hgb Conc 33.2 g/dL (32.0-36.0); Mean Corpuscular Volume 87.4 fL (80.0-100.0); Mean Platelet Volume 11.6 fL (9.4-12.4); Platelet Count 143 K/uL (130-400); RDW Coefficient of Variation 13.2 % (11.5-14.5); RDW Standard Deviation 41.8 fL (36.4-46.3); Red Blood Count 4.52 M/uL (4.20-5.40); White Blood Count 10.17 K/ul (4.8-10.8)
[2024-11-19 09:01] LABS: BUN Creatinine Ratio 30.2 (10-20); Creatinine Clr Calc Pharmacy 57.7 ml/min; Potassium 3.9 mmol/L (3.5-5.1)
--- NOTE | 2024-11-19 09:31 | Orthopedic Progress Note ---
Date of Service November 19, 2024 Assessment & Plan (1) Subcapital fracture of right hip: Operation Date: 11/17/24 08:20 Actual Procedures p Right Cemented Hemiarthroplasty(Right) - Mikel Keenan DO Postop day 2 from a right cemented hemiarthroplasty from an anterior approach due to a fracture. -PT/OT wbat. No hip precautions needed due to the anterior approach. -dvt prophylaxis: teds, scd's, aspirin -pain is well controlled -Per last case management note on 11/18/2024, there is a bed at [facility] for the patient. This was discussed with the patient's daughter Usha. Subjective Operation Date: 11/17/24 08:20 Actual Procedures p Right Cemented Hemiarthroplasty(Right) - Mikel Keenan DO Patient is postop day 2 from a right cemented hemiarthroplasty from an anterior approach due to a fracture. She is doing well. States that this is the best that she has felt since her fall/injury. She denies any numbness or tingling right lower extremity. No question concerns today. I did talk to her about her situation at home. States that she does have a daughter who lives close by and will be willing to help. Did explain her this is going to be up to her, hospital service and her case specialist. Review of Systems All systems reviewed & are unremarkable except as noted in HPI & below. Physical Exam General: Alert and oriented. No acute distress. Right hip: Dressing check satisfactory with no saturation. It is dry and intact. She has good range of motion of the right lower extremity. Results & Data Results & Data Laboratory Results . Diagnostic Findings . PG Care Time/CCT Total # of Minutes Spent Total Time Spent with Patient: Total time spent is greater than 50% in coordination of care (as documented) at patient's floor/unit and/or counseling patient: Coding Level of Care Code 65342 Post Operative Follow-Up Diagnoses Subcapital fracture of right hip S72.011A
--- NOTE | 2024-11-19 16:04 | Hospitalist Progress Note ---
Date of Service November 19, 2024 Assessment & Plan (1) Fall: (2) Acute pain of right hip: (3) Closed right hip fracture: Plan 74-year-old female with history of stroke, chronic facial droop/ Alanis's palsy, hypertension who presented after a mechanical fall. Stated she slipped on ice Right hip fracture Hip X ray:Displaced fracture neck of the femur. Ortho eval noted S/p right hemiarthroplasty on 11/17/24 POD 2 Pain is well controlled PT/OT noted Vit D level is 42.5 ASA 81mg BID per ortho Hypertensive urgency H/O hypertension currently not on medications Start on amlodipine 5mg daily H/O CVA with chronic facial droop Continue aspirin 81 mg daily HbA1c 5.4 Delirium H/o cognitive impairment per daughter CT head did not show any acute findings but noted small hypodensities within left basal ganglia and left thalamus suggestive of old infarcts Redirect as needed DVT Px: hep sq Code Status Full Code CM working on placement I spent a total of 40 minutes coordinating, documenting and providing care for this patient excluding time spent in performance of separately billed services Admission and Anticipated Discharge Date Admission Date: November 16, 2024 Subjective Patient seen and examined Reports surgical site pain is well controlled She is AOx3 today No other complaints Physical Exam Constitutional: well nourished; + not well developed Eyes: PERRL, conjunctivae normal, anicteric sclerae ENMT: external ear and nose normal, oropharynx normal Respiratory: normal respiratory effort, lungs clear to auscultation Cardiovascular: Rate/Rhythm: regular rate and regular rhythm Gastrointestinal (Abdomen): normal bowel sounds, soft, nontender, no hepatosplenomegaly Neurologic: PERRL, EOMI, accommodation nl, no face palsy, no dysarthria Psychiatric: Aox3. Not confused at this time Results & Data Results & Data Vital Signs (Past 12 Hours) Vital Signs Temp Pulse Resp BP BP Pulse Ox O2 Del Method 11/19/24 11:37 36.4 C L 80 16 122/76 97 Room Air 11/19/24 07:56 36.4 C L 88 17 116/65 96 Room Air Laboratory Results Abnormal lab results 11/19/24 Range/Units 07:56 BUN 26 H (6-23) mg/dl BUN/Creatinine Ratio 30.2 H (10-20) Glucose 100 H (70-99(Fasting)) mg/dl
--- NOTE | 2024-11-20 10:59 | Hospitalist Progress Note ---
Date of Service November 20, 2024 Assessment & Plan (1) Fall: (2) Acute pain of right hip: (3) Closed right hip fracture: Plan 74-year-old female with history of stroke, chronic facial droop/ Alanis's palsy, hypertension who presented after a mechanical fall. Stated she slipped on ice Right hip fracture Hip X ray:Displaced fracture neck of the femur. Ortho eval noted S/p right hemiarthroplasty on 11/17/24 POD 3 Pain is well controlled PT/OT noted Vit D level is 42.5 ASA 81mg BID per ortho Hypertensive urgency H/O hypertension currently not on medications Continue amlodipine 5mg daily started this admission H/O CVA with chronic facial droop Continue aspirin 81 mg daily HbA1c 5.4 Delirium H/o cognitive impairment per daughter CT head did not show any acute findings but noted small hypodensities within left basal ganglia and left thalamus suggestive of old infarcts Redirect as needed DVT Px: hep sq Code Status Full Code CM working on placement I spent a total of 35 minutes coordinating, documenting and providing care for this patient excluding time spent in performance of separately billed services Admission and Anticipated Discharge Date Admission Date: November 16, 2024 Subjective Patient seen and examined Reports surgical site pain is well controlled No other complaints Physical Exam Constitutional: well nourished; + not well developed Eyes: PERRL, conjunctivae normal, anicteric sclerae ENMT: external ear and nose normal, oropharynx normal Respiratory: normal respiratory effort, lungs clear to auscultation Cardiovascular: Rate/Rhythm: regular rate and regular rhythm Gastrointestinal (Abdomen): normal bowel sounds, soft, nontender, no hepatosplenomegaly Musculoskeletal: Clean dressing over surgical site Neurologic: PERRL, EOMI, accommodation nl, no face palsy, no dysarthria Results & Data Results & Data Vital Signs (Past 12 Hours) Vital Signs Temp Pulse Resp BP Pulse Ox O2 Del Method 11/20/24 07:47 36.5 C 89 16 175/73 H 98 Room Air 11/20/24 04:56 36.3 C L 81 16 147/88 H 95 Room Air 11/19/24 23:23 Room Air 11/19/24 23:06 36.7 C 83 16 130/74 97 Room Air
[2024-11-21 07:49] VITALS: RESP 18
--- NOTE | 2024-11-21 09:59 | Hospitalist Progress Note ---
Date of Service November 21, 2024 Assessment & Plan (1) Fall: (2) Acute pain of right hip: (3) Closed right hip fracture: Plan 74-year-old female with history of stroke, chronic facial droop/ Alanis's palsy, hypertension who presented after a mechanical fall. Stated she slipped on ice Right hip fracture Hip X ray:Displaced fracture neck of the femur. Ortho eval noted S/p right hemiarthroplasty on 11/17/24 POD 4 Pain is well controlled PT/OT noted Vit D level is 42.5 ASA 81mg BID per ortho Hypertensive urgency H/O hypertension currently not on medications Continue amlodipine 5mg daily started this admission H/O CVA with chronic facial droop Continue aspirin 81 mg daily HbA1c 5.4 Delirium H/o cognitive impairment per daughter CT head did not show any acute findings but noted small hypodensities within left basal ganglia and left thalamus suggestive of old infarcts Redirect as needed DVT Px: hep sq Code Status Full Code CM working on placement I spent a total of 35 minutes coordinating, documenting and providing care for this patient excluding time spent in performance of separately billed services Admission and Anticipated Discharge Date Admission Date: November 16, 2024 Subjective Patient seen and examined No complaints today Physical Exam Constitutional: well nourished; + not well developed Eyes: PERRL, conjunctivae normal, anicteric sclerae ENMT: external ear and nose normal, oropharynx normal Respiratory: normal respiratory effort, lungs clear to auscultation Cardiovascular: Rate/Rhythm: regular rate and regular rhythm Gastrointestinal (Abdomen): normal bowel sounds, soft, nontender, no hepatosplenomegaly Neurologic: PERRL, EOMI, accommodation nl, no face palsy, no dysarthria Psychiatric: Alert and oriented to person. Knows she is in a hospital but does not recall name. Not oriented to time Results & Data Results & Data Vital Signs (Past 12 Hours) Vital Signs Temp Pulse Pulse Resp BP BP Pulse Ox 11/21/24 07:49 36.4 C L 88 18 156/90 H 98 11/21/24 07:00 960 H 11/21/24 03:10 36.4 C L 84 12 137/74 98 11/20/24 23:35 36.4 C L 86 12 131/72 97 O2 Del Method 11/21/24 07:49 Room Air 11/21/24 07:00 11/21/24 03:10 Room Air 11/20/24 23:35 Room Air
[2024-11-22 07:37] VITALS: TEMP 97.3; O2SAT 97
--- NOTE | 2024-11-22 12:12 | Discharge Summary ---
Date of Service November 22, 2024 Admission HPI Per Admitting Provider Patient is a 74-year-old female with history of stroke, chronic facial droop, Alanis's palsy, hypertension and no other significant past medical history presents with history of fall. patient went to a grocery store today and while in the parking lot patient accidentally slipped and fell on right side. Patient complains of significant right hip pain, nonradiating 10/10 intensity, denies any numbness or tingling since the fall. She was not able to ambulate. Denies any head trauma, loss of consciousness, dizziness. Patient denies any use of blood thinners but admits to take aspirin 81 mg daily for CVA. She denies pain at any other site other than the right hip. Denies any history of chest pain, dyspnea, palpitations, pedal edema, cough, fever, chills, headache, change in vision, nausea, vomiting, abdominal pain, diarrhea, dysuria, recent change in medications. Admission Exam Per Admitting Provider General Appearance:Moderately built and nourished, no apparent distress Head: normocephalic, Atraumatic Eyes: normal inspection, EOMI Neck: supple, Trachea midline Respiratory/Chest: Normal breath sounds, CTA, No accessory muscle use Cardiovascular: S1, S2, No murmur Abdomen/GI:Soft, Non tender, Bowel sounds present Extremities/Musculoskeletal:normal inspection, no edema, Right lower extremity shortened, externally rotated Neurologic/Psych:AAOX3, grossly no focal neurological deficits,+ chronic facial droop Skin: normal color, warm Principal Diagnosis Fall Right femoral fracture Hypertension Delirium Discharge Exam Constitutional well nourished; + not well developed Eyes PERRL, conjunctivae normal, anicteric sclerae ENMT external ear and nose normal, oropharynx normal Respiratory normal respiratory effort, lungs clear to auscultation Cardiovascular Rate/Rhythm: regular rate and regular rhythm Gastrointestinal (Abdomen) normal bowel sounds, soft, nontender, no hepatosplenomegaly Musculoskeletal Clean dressing over surgical site Neurologic PERRL, EOMI, accommodation nl, no face palsy, no dysarthria Psychiatric Alert and oriented to person and place, cooperative Discharge Data Allergies Allergy/AdvReac Type Severity Reaction Status Date / Time No Known Allergies Allergy Unverified 11/16/24 17:44 Consultations 11/16/24 17:04 ED Decision to Admit Stat 11/16/24 17:08 Consult Orthopedic Surgery Routine Procedures Performed Operation Date: 11/17/24 08:20 Actual Procedures p Right Cemented Hemiarthroplasty(Right) - Mikel Keenan DO Ordered Studies 11/17/24 [place] hip RT 1V Routine 11/18/24 12:39 CT head/brain wo con Urgent Hospital Course (1) Fall: (2) Acute pain of right hip: (3) Closed right hip fracture: Plan 74-year-old female with history of stroke, chronic facial droop/ Alanis's palsy, hypertension who presented after a mechanical fall. Stated she slipped on ice Right hip fracture Hip X ray:Displaced fracture neck of the femur. Ortho eval noted S/p right hemiarthroplasty on 11/17/24 POD 5 Pain is well controlled Vit D level is 42.5 ASA 81mg BID for 6 weeks per ortho Hypertensive urgency H/O hypertension currently not on medications Was started on amlodipine 5mg daily this admission H/O CVA with chronic facial droop Continue aspirin 81 mg daily HbA1c 5.4 Delirium H/o cognitive impairment per daughter CT head did not show any acute findings but noted small hypodensities within left basal ganglia and left thalamus suggestive of old infarcts Redirect as needed Called daughter and updated her Total Time Total Time Spent Total Time Spent (In Minutes): 35 Total Time Includes: Examination of the Patient, Discharge Planning, Medication Reconciliation and Other Discharge Plan Discharge Items Patient Disposition: Transfer Shelter Fac Reason For Visit: FALL, RIGHT HIP FRACTURE Discharge Diagnosis: Fall Right femoral fracture Hypertension Delirium Activity: As commented below Non-emergency contact: Primary Care Provider Call non-emergency contact if: you have any medication questions Follow-up/Referrals: PCP,NO [Primary Care Provider] - Diet: Heart Healthy [facility] Attending Provider Instructions: Mrs Tinajero You were hospitalized after a fall and found to have right hip fracture. You had surgical repair of your hip. You were started on amlodipine for hypertension. You are being discharged to detention facility. Please ensure follow up with your Family Doctor and Orthopedic surgeon It was a pleasure taking care of you. Rocío Puppet Master Provider Instructions: ORTHOPEDIC INSTRUCTIONS Hip Hemiarthroplasty Activity and Therapy Recommendations: 1. You were shown a series of exercises in the hospital. Do these exercises three times each day if you are able. 2. Get up and walk several times each day if you are capable. Make sure you have assistance is needed. For the first four weeks, try not to stand or walk for more than one hour at a time. If you do stand or walk for more than one hour, you will not hurt anything, but your leg will likely swell. 3. As you feel comfortable, you may change from the walker or crutches to a cane and then to independent walking if you are able. Please be safe. Medications: 1. Narcotic You will likely be sent from the hospital with the narcotic pain medication that worked best throughout your stay. 2. Aspirin You will be required to take Aspirin 81mg twice a day for 6 weeks after surgery to prevent blood clots. 3. Other medications may be given for specific circumstances. If you have any questions, please call the office at [phone]. 4. Resume previous home medications unless otherwise instructed TEDs/Elastic Stockings: The white elastic stockings help limit swelling and prevent blood clots from forming in your legs. The more you wear them, the more they work. Wear them for six weeks. Dressing Care: Leave the Silverlon dressing in place for 7 days. After 7 days you may remove the dressing. If the incision is not draining then you may leave the jessica open to air. If there is a little bit of drainage or if the jessica are getting stuck on your clothing then cover the incision with a dry dressing. The jessica will be removed at your 2 week follow-up appointment. Showering: You may shower with the Silverlon dressing in place. Do not let the shower spray hit the dressing directly. Pat the Silverlon dressing dry. If the dressing becomes wet underneath, then simply remove the dressing. Keep the incision dry until you are 7 days out from the day of surgery. After 7 days you may remove the Silverlon dressing and shower with the jessica exposed. Let soapy water run over the jessica and pat them dry. Do not scrub or soak the incision. Diet: You may resume your previous diet. Things To Watch For: 1. Drainage from the incision site that occurs more than one week after your surgery. 2. Increased redness at the incision site. 3. Fever above 102 degrees Fahrenheit. 4. Unusual chest pain or shortness of breath. 5. Call [facility] at with any of the above problems Follow-Up Visit: Follow-up with Dr. Keenan's office 2-3 weeks after your day of surgery. We will remove your jessica and answer any questions. Please call the office to set up an appointment for a time that works for you. Pending Studies at Discharge: No Stand-Alone Forms: My [facility] Skilled Items Patient informed of condition?: Yes DNR: No Discharge Level of Care: Other Communicable Disease: No Discharge Prognosis: Stable Lines: None Urinary Catheter: No Medications and DC Order Prescriptions: New amlodipine [Norvasc] 5 mg Tablet 5 mg PO QAM Qty: 30 0RF aspirin 81 mg Tablet,Delayed Release (Dr/Ec) 81 mg PO BID 42 Days Qty: 84 0RF Discontinued aspirin 81 mg Tablet 81 mg PO DAILY Discharge Orders: Discharge Order (Routine); Ordered 11/22/24 Ordered By: Angelia Julien Admission Data Admit Date/Time: 11/16/24 17:09 Attending Provider: Angelia Julien I. Admit Provider: Ernie Stoner Primary Care Provider: PCP,NO Other Providers: Ernie Stoner; Mikel Keenan; Hany Campos Other Interventions: Discharge Summary Assessment (RN) Last Done: 11/22/24 12:47
[2024-11-22 12:49] VITALS: BP 135/86; PULSE 80
== END 2024-11-22 13:47 | DRG 522 ==
LOC: ED 15:46 → SUATTDRO 17:09 → 2W 17:09 → 3N 11-22 00:03